=== PATIENT | female | born 1990 | race Caucasian/White ===

== ENCOUNTER 2017-12-02 15:25 | Emergency (ER) | payer OTHER ==
[2017-12-02] MEDS ORDERED: Betamethasone Soluspan 30 mg/5mL Inj Susp IM SCH (16:45)
[2017-12-02] MEDS ORDERED: Lactated Ringer's 1,000 ML IV ONE (16:48)
--- NOTE | 2017-12-02 18:24 | US ---
Date of service: 12/02/2017 PROCEDURE: Biophysical profile HISTORY: decr FM; A2GDM; IUGR COMPARISON: None TECHNIQUE: Standard protocol for this study/examination. FINDINGS: FINDINGS: Biophysical profile score 8/8 Based on the followin. breathing movements: 2/2 2. Gross body movement: 2/2 3. tone: 2/2 4. Qualitative amniotic fluid index: 2/2 Qualitative amniotic fluid 7.66 cm. Vertex presentation. Fundal Placenta. No evidence of abruption or previa Gestational age derived from LMP 36 weeks 5 days. KEATON 12/25/2017. Gestational age derived from the following biometric parameters 35 weeks 1 day. KEATON 01/05/2018 Biparietal diameter 8.8 cm Head circumference 31.4 cm Abdominal circumference 29.9 cm Femur length 6.9 cm Estimated weight 2492 g Calculated cardiac rate 122 beats per min. Closed cervix measuring 3.20 cm IMPRESSION: Thirty-five weeks 1 day live intrauterine gestation. Gestational concordance documented. Biophysical profile score 8/8.
--- NOTE | 2017-12-02 19:35 | OBHP ---
Datetime: 12/02/2017 16:28 IP Adm Impression: , intrauterine IP Adm Impression Other: A2 GDM; IUGR IP Admit Plan: Observation/Evaluation; Discharge home Admit Comment, IP Provider: Pt is a 28 yo at 36w presented due to decreased movement sinc e this morning at 11 AM. Her LMP was 12/3 and her KEATON is 12/30 assessed through ultrasound. She states that the last time she truly felt any movement was at 11 AM and was concerned, she went to her appointment with Dr. Kim, who encouraged her to come to the hospital for a NST. She does not compla in of any vaginal bleeding or loss of fluid from the vagina at this time. She also states that she is having irregular contractions that occur mostly at night, and reach a 3/10 in intensity. During this she has been diagnosed with GDM about 3 weeks ago and is taking Metformin 500mg QD, which controls her sugars well. 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 Her periods come every 2 months and last for 5-6 days. She denies any history of STIs, and denies having any Pap smears done. Past Medical Hx: Denies Past Surgical Hx: Denies Medications: Metformin 500 QD last taken 12/01 (takes with lunch), vitamins Allergies: Alleged Sulfur allergy - per pt based on mother's sulfur allergy Social Hx: Denies EtOH use, any smoking use, or any illicit drug use. She has been for 1ye ar and 2 months, and is unemployed Assessment: 28 yo , 36 weeks, decreased movement. Plan: - Procardia 10mg TID - Celestone - BPP - Continue to monitor for cervical dilation - Fluid hydration - Javier Vargas DO, PGY-1 Attending Note: pateint seen and evaluated by me with the Resident. I agree wth the above as docum ented. Cervical exam performed by me. Note: In Ob-ED, patient reported good FM. F.S. at 1653 hours n oted, 1 1/2 hours after eating; patient did not take her metformn prior to eating. F.S. log has been reviewed - adequate glycemic control. Category 1 tracing. Clinically stable. Plan: as above. (As per and discussed with Dr. Kim) Addendum: 1920 hours - Patient returned from ultrasound; reports not feeling Ctx, does acknowledge "period-like" cramps ...infrequent" FHR 140 bpm: (+) accels; (-) decels; (+) moderate variability [place]: every 4-5 minutes - cervical exam: 3-4cm/60%/-3 - ultrasound report: BPS 11/23; SHAWN 7.66cm; cephalic. EFW 2492 grams All of the above was discussed with Dr. Kim. Her plan, which was discussed with thte patient and her , is the followin) Discharge home 2) Reviewed S/S PTL 3) Continue procardia 10 mg po TID x 7 days 4) Contiue metformin 500mg po QD with F.S. 4 times a day 5) Return to [facility] 12/03/17 for second dose of celestone 6) NST 12/03/17 7) Keep appointment for BPP, 12/05/17 8) Keep apointment, Tuesday12/09/17 Pelvic Type - PN: Adequate Extremities - PN: Normal Abdomen - PN: Normal Back - PN: Normal Breast - PN: Not Done Lungs - PN: Normal Heart - PN: Normal Thyroid - PN: Not Done Neurologic - PN: Normal HEENT - PN: Normal General - PN: Normal Presentation-Admit: Vertex FHR - Baseline A Provider: 135 Contraction Comments Provider: irregular Comments, ACOG Physical Exam: Abdoment: Gravid. soft. Fundal height 36 cm All other systems reviewed and are negative Gestation - Est Wks by US: 36.0 IP Hx Assessment: The History has been Reviewed and is Current EGA AdmitDate IP: 36.0 IP Chief Complaint: Decreased movement NICHD Variability Prov Fetus A: Moderate 6-25bpm NICHD Accel Fetus A IP Provider: [id number] FHR Category Provider Fetus A: Category I NICHD Decel Fetus A IP Provider: None Dilatation, Provider: 3 Effacement, Provider: 60 Station, Provider: -3 Genitourinary Exam: Normal DTRs - PN: Not Done
[2017-12-02 23:39] VITALS: BP 104/58; PULSE 81; RESP 18; TEMP 97.5
== END 2017-12-02 19:25 | disposition home or self-care (01) ==
LOC: C.EROB 15:25 → EDBD 15:25 → C.EROB 19:25
DX: O36.8130 Decreased fetal movements, third trimester, not applicable or unspecified (principal); Z3A.36 36 weeks gestation of pregnancy
CPT/HCPCS: 76815; 76818; 82948; 96372; 99283; J0702; J7120

== ENCOUNTER 2017-12-03 18:50 | Emergency (ER) | payer OTHER ==
[2017-12-03 18:39] VITALS: BMI 24.3
[~2017-12-03 18:50] MED LIST: Betamethasone Soluspan 30 mg/5mL Inj Susp IM STA
--- NOTE | 2017-12-03 19:31 | OBHP ---
Datetime: 12/03/2017 18:50 IP Adm Impression: , intrauterine IP Admit Plan: Observation/Evaluation; Discharge home Admit Comment, IP Provider: Pt is a 28 yo EDC 12/30 at 36.6w present to [facility] for Betamethasone #2. She received 1st injection yesteray. Report good fm today and intermittent cramps. denies painf ul ctxs, vaginal bleeding or loss of fluid. obhx sig for GDMA2 and is taking Metformin 500mg QD, w hich controls her sugars well. 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 Her periods come every 2 months and last for 5-6 days. She denies any history of STIs, and denies having any Pap smears done. Past Medical Hx: Denies Past Surgical Hx: Denies Medications: Metformin 500 QD last taken 12/01 (takes with lunch), vitamins Allergies: Alleged Sulfur allergy - per pt based on mother's sulfur allergy Social Hx: Denies EtOH use, any smoking use, or any illicit drug use. Assessment: 28 yo , 36.6 weeks. GDMA2 Resolved decreased fm Cervical Dilation Plan: Betameth #2 Extremities - PN: Normal Abdomen - PN: Normal Lungs - PN: Normal Heart - PN: Normal Neurologic - PN: Normal HEENT - PN: Normal General - PN: Normal Presentation-Admit: Vertex FHR - Baseline A Provider: 130 Membranes, Provider: Intact Vital Signs Provider: Within Normal Limits NICHD Variability Prov Fetus A: Moderate 6-25bpm NICHD Accel Fetus A IP Provider: [id number] FHR Category Provider Fetus A: Category I NICHD Decel Fetus A IP Provider: None Dilatation, Provider: 2 Effacement, Provider: 60 Station, Provider: -3 Genitourinary Exam: Normal
== END 2017-12-03 19:23 | disposition home or self-care (01) ==
LOC: C.EROB 18:50
DX: O26.893 Other specified pregnancy related conditions, third trimester (principal); Z3A.36 36 weeks gestation of pregnancy
CPT/HCPCS: 96372; 99283; J0702

== ENCOUNTER 2017-12-14 07:35 | Inpatient (IN) | payer OTHER ==
[2017-12-14] MEDS ORDERED: Oxytocin 30 UNIT 30 UNITS/500 ML BAG IV ONE ×3 (09:05→09:19)
[2017-12-14] MEDS ORDERED: Lactated Ringer's 1,000 ML IV ONE (09:05)
--- NOTE | 2017-12-14 09:32 | OBHP ---
Datetime: 12/14/2017 09:25 IP Adm Impression: Term, intrauterine IP Admit Plan: Admit to unit Admit Comment, IP Provider: 28 y/o @ 38.3 wks GA co ctx pain that started last night every 5-10 min 6/10 intenity increasing intensty adn feruqency. pt preorts she is GDMA2 on Metformin 500mg BID and preorts elevated blood sugars mainly postprdandial 120-160s and fasting 80-95s. Pt also reprots g ettng serial growht ultrasound with the weight of the baby goign down. Pt dnies any lof, vb and rpeor ts decreased movment. 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 Her periods come every 2 months and last for 5-6 days. She denies any history of STIs, and denies having any Pap smears done. Past Medical Hx: GMDA2 Past Surgical Hx: Denies Medications: Metformin 500 mg BID , vitamins Allergies: Alleged Sulfur allergy - per pt based on mother's sulfur allergy Social Hx: Denies EtOH use, any smoking use, or any illicit drug use. She has been for 1ye ar and 2 months, and is unemployed Assessment: 28 yo @ 38.3 wks GA in labor also with GDMA2 Plan: -admit to L+D -npo -admission labs -analgesia prn -blood glucse as per protocol -pitocin as per protocol - Fluid hydration plan as per PMD Dr. Kim Pelvic Type - PN: Adequate Extremities - PN: Normal Abdomen - PN: Normal Back - PN: Normal Breast - PN: Normal Lungs - PN: Normal Heart - PN: Normal Thyroid - PN: Normal Neurologic - PN: Normal HEENT - PN: Normal General - PN: Normal FHR - Baseline A Provider: 145 Membranes, Provider: Intact Contraction Comments Provider: q 5-10 min Gestation - Est Wks by US: 38.3 EGA AdmitDate IP: 38.3 Vital Signs Provider: Reviewed; Within Normal Limits IP Chief Complaint: Uterine contractions; Other NICHD Variability Prov Fetus A: Moderate 6-25bpm FHR Category Provider Fetus A: Category I NICHD Decel Fetus A IP Provider: None Dilatation, Provider: 3 Effacement, Provider: 50 Station, Provider: -2 Genitourinary Exam: Normal DTRs - PN: Normal
[2017-12-14 09:49] LABS: BASO # 0.1 K/uL (0.0-0.2); BASO % 0.4 % (0.0-2.0); EOS # 0.3 K/uL (0.0-0.7); EOS % 1.9 % (0.0-4.0); HEMOGLOBIN 12.7 g/dL (11.0-16.0); LYMPH # 2.5 K/uL (1.0-4.3); LYMPH % 19.2 % (20.0-40.0); MEAN CELL VOLUME 85.3 fL (81.0-99.0); MEAN CORPUSCULAR HEMOGLOBIN 28.4 pg (27.0-31.0); MEAN CORPUSCULAR HGB CONC 33.2 g/dL (33.0-37.0); MEAN PLATELET VOLUME 8.6 fL (7.2-11.7); MONO # 0.7 K/uL (0.0-0.8); NEUT # 9.5 K/uL (1.8-7.0); NEUT % 73.5 % (50.0-75.0); RBC 4.49 Mil/uL (3.80-5.20); WHITE BLOOD COUNT 12.9 K/uL (4.8-10.8)
[2017-12-14 11:26] LABS: SQUAMOUS EPITHIAL 16 /hpf (0-5); URINE BACTERIA RARE (<OCC); URINE BILIRUBIN NEGATIVE (NEGATIVE); URINE BLOOD NEGATIVE (NEGATIVE); URINE CLARITY Hazy (Clear); URINE COLOR Yellow (YELLOW); URINE GLUCOSE (UA) NORMAL (Normal); URINE LEUKOCYTE ESTERASE 3+ Leu/uL (Negative); URINE PROTEIN NEGATIVE (NEGATIVE); URINE UROBILINOGEN NORMAL mg/dL (0.2-1.0)
[2017-12-14 11:38] LABS: ALB/GLOB RATIO 1.3 (1.0-2.1); ALBUMIN 3.8 g/dL (3.5-5.0); ALT/SGPT 28 U/L (9-52); AST/SGOT 19 U/L (14-36); BLOOD UREA NITROGEN 6 mg/dL (7-17); CALCIUM 9.6 mg/dl (8.6-10.4); GFR NON-AFRICAN AMERICAN > 60
[2017-12-14] MEDS ORDERED: Dextrose 5%/Lactated Ringer's 1,000 ML IV SCH (14:30)
--- NOTE | 2017-12-14 15:13 | OBPN ---
Datetime: 12/14/2017 15:09 IP Progress Impression: Normal progression of labor IP Procedures: Artificial ROM IP Progress Plan: Continue present management Membranes, Provider: Ruptured Amniotic Fluid Color, Provider: Clear Contraction Comments Provider: q 2-5 min FHR - Baseline A Provider: 150 IP Progress Note Comment: pt seen adn examiend for progresison of labor rpeorts labor cts pain 6/10 does not desire pain med anuel lof, vb, +FM VS VE: 3-4/50/-2 AROM cler EMF: 150/mod delma BITA: q 2-5 min A/P @ 38 wks GA in labor with GDMA and SGA cotn bita oand efm oxygn, left lateral ivh cont curretn mangemt pain mangemt prn pmd aware Vital Signs Provider: Reviewed; Within Normal Limits NICHD Variability Prov Fetus A: Moderate 6-25bpm Dilatation, Provider: 4 Effacement, Provider: 50 Station, Provider: -2 Datetime: 12/14/2017 09:25 Gestation - Est Wks by US: 38.3 FHR Category Provider Fetus A: Category I NICHD Decel Fetus A IP Provider: None Datetime: 12/03/2017 18:50 Presentation-Admit: Vertex NICHD Accel Fetus A IP Provider: [id number]
[2017-12-14] MEDS ORDERED: Lidocaine 2% MPF (5 ml) Inj ONE (16:28)
[2017-12-14] MEDS ORDERED: Bupivacaine HCl/FentaNYL Cit 100 ML EPI ONE (16:28)
--- NOTE | 2017-12-14 20:50 | OBADHP ---
Datetime: 12/14/2017 15:09 FHR - Baseline A Provider: 150 Amniotic Fluid Color, Provider: Clear Membranes, Provider: Ruptured Contraction Comments Provider: q 2-5 min Vital Signs Provider: Reviewed; Within Normal Limits NICH Variability Prov Fetus A: Moderate 6-25bpm Dilatation, Provider: 4 Effacement, Provider: 50 Station, Provider: -2 Datetime: 12/14/2017 09:25 Admit Comment, IP Provider: 28 y/o @ 38.3 wks GA co ctx pain that started last night every 5-10 min / intenity increasing intensty adn feruqency. pt preorts she is GDMA2 on Metformin 500mg BID and preorts elevated blood sugars mainly postprdandial 120-160s and fasting 80-95s. Pt also reprots g ettng serial growht ultrasound with the weight of the baby goign down. Pt dnies any lof, vb and rpeor ts decreased movment. 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 Her periods come every 2 months and last for 5-6 days. She denies any history of STIs, and denies having any Pap smears done. Past Medical Hx: GMDA2 Past Surgical Hx: Denies Medications: Metformin 500 mg BID , vitamins Allergies: Alleged Sulfur allergy - per pt based on mother's sulfur allergy Social Hx: Denies EtOH use, any smoking use, or any illicit drug use. She has been for 1ye ar and 2 months, and is unemployed Assessment: 28 yo @ 38.3 wks GA in labor also with GDMA2 Plan: -admit to L+D -npo -admission labs -analgesia prn -blood glucse as per protocol -pitocin as per protocol - Fluid hydration plan as per PMD Dr. Kim Pelvic Type - PN: Adequate Extremities - PN: Normal Abdomen - PN: Normal Back - PN: Normal Breast - PN: Normal Lungs - PN: Normal Heart - PN: Normal Thyroid - PN: Normal Neurologic - PN: Normal HEENT - PN: Normal General - PN: Normal Gestation - Est Wks by US: 38.3 IP Chief Complaint: Uterine contractions; Other FHR Category Provider Fetus A: Category I NICHD Decel Fetus A IP Provider: None Genitourinary Exam: Normal DTRs - PN: Normal EGA AdmitDate IP: 38.3 IP Adm Impression: Term, intrauterine IP Admit Plan: Admit to unit Datetime: 12/03/2017 18:50 Presentation-Admit: Vertex NICHD Accel Fetus A IP Provider: [id number] Datetime: 12/02/2017 16:28 IP Adm Impression Other: A2 GDM; IUGR Comments, ACOG Physical Exam: Abdoment: Gravid. soft. Fundal height 36 cm All other systems reviewed and are negative IP Hx Assessment: The History has been Reviewed and is Current
[2017-12-14] MEDS ORDERED: Oxycodone/Acetaminophen 5/325 mg Tab PO PRN ×2 (22:03)
--- NOTE | 2017-12-14 22:03 | OBDS ---
DELIVERY PERSONNEL Nurse Pump Installation And Servicer Certified: N/A Delivery Doctor: Shiv Kim MD Scrub Nurse: N/A Paint Tinter: Jo Ann Espinal RN Anesthesiologist: DR GRACE Animal Services Officer: KATERYNA Resident: NHernando MATERNAL INFORMATION Delivery Anesthesia: Epidural Medications in Delivery: PITOCIN 20 UNITS IN 1L BAG Estimated Blood Loss (ml): 350 Placenta Cultured: No Maternal Complications: None Provider Comments: of a male infant .Body and shoulders delivered without difficulty.cord clampe d and cut.cord blood collected .placenta spontaneously delivered.second degree perineal laceration an d periurethral laceration repaired with 2-0 and 3-0 chromic Fundus firm patient stable ebl 350cc LABOR SUMMARY EDC: 12/25/2017 00:00 No. Babies in Womb: 1 Attempted: No Labor Anesthesia: Epidural LABOR INFORMATION Onset of Labor: 12/14/2017 15:00 Complete Dilatation: 12/14/2017 19:15 Group B Beta Strep: Negative MEMBRANES Membranes Rupture Method: Artificial Rupture of Membranes: 12/14/2017 15:00 Length of Rupture (hrs): 6.55 Amniotic Fluid Color: Clear Amniotic Fluid Amount: Small Amniotic Fluid Odor: Normal STAGES OF LABOR Stage 1 hrs: 4 Stage 1 min: 15 Stage 2 hrs: 2 Stage 2 min: 18 Stage 3 hrs: 0 Stage 3 min: 8 Total Time in Labor hrs: 6 Total Time in Labor min: 41 VAGINAL DELIVERY Episiotomy: None Laceration Extension: Second Degree Laceration Type: Perineal; Periurethral Laceration Repair: 2-0 CHROMIC Laceration Repair Note: second degree perineal laceration and periurethral laceration repaired with 2-0 and 3-0 chromic Initial Vag Sponge Count: 1 LAP, 10 X-RAYS Initial Vag Sharps Count: 0 Sponge Count Correct: Yes; Vaginal Sweep Performed Sharps Count Correct: Yes BABY A INFORMATION Infant Delivery Date/Time: 12/14/2017 21:33 Method of Delivery: Vaginal Born in Route : No : N/A Forceps: N/A Vacuum Extraction: N/A Shoulder Dystocia : No SHOULDER DYSTOCIA BABY A Delivery Date/Time: 12/14/2017 21:33 PRESENTATION/POSITION BABY A Presentation: Cephalic Cephalic Presentation: Vertex Vertex Position: Right Occipital Anterior Breech Presentation: N/A PLACENTA INFORMATION BABY A Placenta Delivery Time : 12/14/2017 21:41 Placenta Method of Delivery: Spontaneous Placenta Status: Delivered SCORES BABY A Heart Rate 1 min: >100 bpm Resp Effort 1 min: Good Cry Reflex Irritability 1 min: Cough or Sneeze or Pulls Away Muscle Tone 1 min: Active Motion Color 1 min: Body [place], Extremities Blue Resuscitation Effort 1 min: N/A SCORE 1 MIN: 9 Heart Rate 5 min: >100 bpm Resp Effort 5 min: Good Cry Reflex Irritability 5 min: Cough or Sneeze or Pulls Away Muscle Tone 5 min: Active Motion Color 5 min: Body [place], Extremities Blue Resuscitation Effort 5 min: N/A SCORE 5 MIN: 9 INFANT INFORMATION BABY A Gestational Age at Delivery: 38.3 Gestational Status: Term Infant Outcome : Liveborn Condition : Stable Infant Sex: Male IDENTIFICATION/MEDS BABY A ID Band Number: [id number] ID Band Location: Left Leg; Left Arm Sensor Number: [id number] Sensor Location : Cord Clamp Vitamin K Given : Not Given Erythromycin Given: Not Given WEIGHT/LENGTH BABY A Infant Birthweight (gms): 3070 Infant Weight (lb): 6 Infant Weight (oz): 12 Length Inches: 19.00 Length cms: 48.3 CORD INFORMATION BABY A Nuchal Cord : N/A ASSESSMENT BABY A Infant Complications: None Physical Findings at Delivery: Within Normal Limits Respirations: Appears Normal Air Turning Machine Feeder/ALS Called : Yes Infant Care By: DR BELTRAN Transferred To: Nursery
[2017-12-15 00:50] VITALS: RESP 20
[2017-12-15] MEDS: Benzocaine/Menthol 20%-0.5% Topical Spray (60 ml) TOP PRN ×2 (05:34→17:38)
[2017-12-15 08:32] LABS: BASO # 0.1 K/uL (0.0-0.2); BASO % 0.3 % (0.0-2.0); EOS # 0.1 K/uL (0.0-0.7); EOS % 0.6 % (0.0-4.0); HEMOGLOBIN 11.4 g/dL (11.0-16.0); LYMPH # 2.2 K/uL (1.0-4.3); LYMPH % 9.8 % (20.0-40.0); MEAN CELL VOLUME 85.2 fL (81.0-99.0); MEAN CORPUSCULAR HEMOGLOBIN 28.9 pg (27.0-31.0); MEAN CORPUSCULAR HGB CONC 33.9 g/dL (33.0-37.0); MEAN PLATELET VOLUME 8.3 fL (7.2-11.7); MONO # 1.7 K/uL (0.0-0.8); MONO % 7.6 % (0.0-10.0); NEUT # 18.1 K/uL (1.8-7.0); NEUT % 81.7 % (50.0-75.0); NRBC % 0.1 % (0.0-2.0); PLATELET COUNT 190 K/uL (130-400); RBC 3.95 Mil/uL (3.80-5.20); RED CELL DISTRIBUTION WIDTH 14.3 % (11.5-14.5)
[2017-12-15 08:35] LABS: WHITE BLOOD COUNT 22.1 K/uL (4.8-10.8)
[2017-12-15 09:35] LABS: ANISOCYTOSIS SLIGHT; EOSINOPHIL 3 % (0-4); HYPOCHROMIC SLIGHT; LYMPHOCYTE 10 % (20-40); MONOCYTE 7 % (0-10); NEUTROPHIL 80 % (50-75); PLATELET ESTIMATE NORMAL (NORMAL); POIKILOCYTOSIS SLIGHT; TOTAL CELLS COUNTED 100
[2017-12-15] MEDS: Multiple Vitamins Tab PO SCH (10:05)
[2017-12-16 07:43] VITALS: PULSE 81; TEMP 97.7; O2SAT 99
[2017-12-16] MEDS: Multiple Vitamins Tab PO SCH (10:31)
[2017-12-16 10:59] LABS: BASO % 0.4 % (0.0-2.0); EOS # 0.4 K/uL (0.0-0.7); HEMOGLOBIN 11.4 g/dL (11.0-16.0); LYMPH # 2.1 K/uL (1.0-4.3); LYMPH % 14.6 % (20.0-40.0); MEAN CELL VOLUME 85.5 fL (81.0-99.0); MEAN CORPUSCULAR HEMOGLOBIN 28.7 pg (27.0-31.0); MEAN CORPUSCULAR HGB CONC 33.6 g/dL (33.0-37.0); MEAN PLATELET VOLUME 8.3 fL (7.2-11.7); MONO % 7.4 % (0.0-10.0); NEUT # 10.5 K/uL (1.8-7.0); NEUT % 74.6 % (50.0-75.0); RBC 3.97 Mil/uL (3.80-5.20); RED CELL DISTRIBUTION WIDTH 14.3 % (11.5-14.5); WHITE BLOOD COUNT 14.1 K/uL (4.8-10.8)
[2017-12-16] MEDS ORDERED: Tdap Vaccine 0.5 ml Vial (10-64 yrs) IM ONE (12:00)
[2017-12-16] MEDS ORDERED: Measles, Mumps, and Rubella 0.5 ML VIAL SC ONE (12:00)
[2017-12-16 20:51] VITALS: BP 102/70
--- NOTE | 2017-12-18 10:15 | OBDCSUM ---
Datetime: 12/16/2017 09:43 Discharge Instructions, Provider: Routine instructions given Discharge Diagnosis, Provider: Term Delivered Discharge Comment, Provider: call the office if you have, feevr, pain, heavy bleeding ro any other p roblems Discharge Diagnosis Prov Other: s/p vaginal delivery
--- NOTE | 2017-12-18 10:15 | OBPPN ---
Datetime: 12/16/2017 10:11 PP Pain Prov: Within normal limits PP Nausea Prov: Denies PP Flatus Prov: Yes PP BM Prov: Yes PP Breasts Prov: Normal PP Heart Prov: Normal PP Lungs Prov: Normal PP Abdomen/Uterus Prov: Normal PP Lochia Prov: Normal PP Vulva/Perineum Prov: Normal PP CVA Tenderness Prov: Normal PP Extremities Prov: Normal PP C/S Incision Prov: Not Applicable PP Progress Prov: Normal PP Impression Prov: Normal progression PP Plan Prov: Discharge PP Progress Note Prov: S-patientd eneis any complaomts Toelratingr egular diet ambulating and voiding without difficulty O-VSS Afebrile Fundus firm and below umbilicus extermities no calf tenderness A/P Patient s/p vagia delivery ppd 2 doingw ell -discharteg today -follow [facility] weeks Vital Signs Provider PP: Reviewed; Within Normal Limits
== END 2017-12-16 15:45 | disposition home or self-care (01) | DRG 775 ==
LOC: C.EROB 07:35 → C.4D 08:58 → C.4M 12-15 00:20
PROVIDERS: ADMIT Student in an Organized Health Care Education/Training Program; ATTEND Student in an Organized Health Care Education/Training Program
PROC: 10E0XZZ Delivery of Products of Conception, External Approach (ICD-10-PCS; principal; 2017-12-14)
PROC: 0KQM0ZZ Repair Perineum Muscle, Open Approach (ICD-10-PCS; 2017-12-14)
PROC: 0UQMXZZ Repair Vulva, External Approach (ICD-10-PCS; 2017-12-14)
PROC: 10907ZC Drainage of Amniotic Fluid, Therapeutic from Products of Conception, Via Natural or Artificial Opening (ICD-10-PCS; 2017-12-14)
DX: O24.425 Gestational diabetes mellitus in childbirth, controlled by oral hypoglycemic drugs (principal); Z37.0 Single live birth; O70.1 Second degree perineal laceration during delivery; O71.82 Other specified trauma to perineum and vulva; Z3A.38 38 weeks gestation of pregnancy; Z79.84 Long term (current) use of oral hypoglycemic drugs